=== PATIENT | female | born 2000 | race Caucasian/White ===

== ENCOUNTER 2021-11-09 12:58 | Inpatient (IN) | payer SELFPAY ==
[~2021-11-09] VITALS: Ht 172.7 cm; Wt 50.3 kg
[2021-11-09] MEDS ORDERED: METOCLOPRAMIDE HCL 10 MG/2 ML VIAL IV ONE (13:45)
[2021-11-09] MEDS ORDERED: IV NORMAL SALINE 1000 ML BAG IV ONE ×2 (13:45→16:00)
[2021-11-09] MEDS ORDERED: PANTOPRAZOLE SODIUM 40 MG VIAL IV ONE (13:45)
[2021-11-09] MEDS ORDERED: METOCLOPRAMIDE HCL 10 MG/2 ML VIAL ONE (14:09)
[2021-11-09] MEDS ORDERED: PANTOPRAZOLE SODIUM 40 MG VIAL ONE (14:09)
[2021-11-09 14:13] LABS: HEMATOCRIT 38.1 % (31.2-41.9); MEAN CORPUSCULAR HEMOGLOBIN 30.1 uug (24.7-32.8); MEAN CORPUSCULAR VOLUME 83.2 fL (75.5-95.3); PLATELET COUNT (AUTO) 330 K/uL (179-408)
[2021-11-09 15:32] LABS: BILIRUBIN,DIRECT 0.4 mg/dL (0.0-0.2); BILIRUBIN,TOTAL 1.6 mg/dL (0.2-1.0); CREATININE 0.7 mg/dL (0.6-1.3); TOTAL PROTEIN, SERUM 7.9 g/dL (6.4-8.2)
[2021-11-09 15:35] LABS: POTASSIUM 1.5 mmol/L (3.5-5.1)
[2021-11-09] MEDS ORDERED: ONDANSETRON 4 MG/2 ML VIAL IV ONE (15:45)
[2021-11-09] MEDS ORDERED: POTASSIUM BICARBONATE/CIT AC 25 MEQ TABLET.EFF PO ONE (15:45)
[2021-11-09] MEDS ORDERED: POTASSIUM CHLORIDE 20 MEQ POWDER PACKET PO ONE ×2 (15:45→18:15)
[2021-11-09] MEDS ORDERED: POTASSIUM CHLORIDE 20 MEQ POWDER PACKET ONE ×2 (15:48→18:36)
[2021-11-09] MEDS ORDERED: ONDANSETRON 4 MG/2 ML VIAL ONE (15:56)
[2021-11-09] MEDS ORDERED: POTASSIUM CHLORIDE 50 ML ONE ×2 (15:56→17:03)
[2021-11-09] MEDS ORDERED: POTASSIUM CHLORIDE 50 ML IV STA (15:57)
[2021-11-09] MEDS ORDERED: MAGNESIUM HYDROXIDE 30 ML LIQUID UDC PO PRN (17:00)
[2021-11-09] MEDS: POTASSIUM CHLORIDE 50 ML IV SCH ×2 (17:00→19:30)
[2021-11-09] MEDS ORDERED: ACETAMINOPHEN 325 MG TABLET PO PRN (17:00)
[2021-11-09 17:54] LABS: CREATININE 0.7 mg/dL (0.6-1.3)
[2021-11-09 17:56] LABS: POTASSIUM 1.7 mmol/L (3.5-5.1)
[2021-11-09] MEDS: POTASSIUM CHLORIDE 40 MEQ in IV NS 1000 ML 1,000 ML IV PRN (19:31)
[2021-11-10] MEDS: POTASSIUM CHLORIDE 40 MEQ in IV NS 1000 ML 1,000 ML IV PRN ×3 (04:00→23:04)
[2021-11-10 06:29] LABS: MEAN CORPUSCULAR HEMOGLOBIN 30.2 uug (24.7-32.8); MEAN CORPUSCULAR VOLUME 85.4 fL (75.5-95.3); PLATELET COUNT (AUTO) 229 K/uL (179-408)
[2021-11-10 06:33] LABS: CREATININE 0.6 mg/dL (0.6-1.3)
[2021-11-10 06:35] LABS: POTASSIUM 2.2 mmol/L (3.5-5.1)
[2021-11-10] MEDS ORDERED: METO-295 PO (08:27)
[2021-11-10] MEDS: ONDANSETRON 4 MG/2 ML VIAL IV PRN ×2 (08:42→13:05)
[2021-11-10] MEDS ORDERED: ONDANSETRON 4 MG/2 ML VIAL ONE ×2 (08:43→13:13)
[2021-11-10] MEDS ORDERED: POTASSIUM CHLORIDE 20 MEQ POWDER PACKET ONE (08:43)
[2021-11-10] MEDS ORDERED: POTASSIUM CHLORIDE 20 MEQ POWDER PACKET PO ONE (08:45)
[2021-11-10] MEDS ORDERED: ACETAMINOPHEN 325 MG TABLET ONE (13:13)
[2021-11-10 13:48] LABS: BAND % (MANUAL) 1 % (0-10); EOSINOPHILS % (MANUAL) 2 % (0-8); LYMPHOCYTES % (MANUAL) 42 % (20-40); MONOCYTES % (MANUAL) 16 % (2-10); NEUTROPHILS % (MANUAL) 39 % (42-75)
[2021-11-10] MEDS ORDERED: LORAZEPAM 2 MG/1 ML VIAL ONE ×2 (14:28→14:58)
[2021-11-10] MEDS ORDERED: LORAZEPAM 2 MG/1 ML VIAL IV ONE ×2 (15:00)
[2021-11-10] MEDS ORDERED: SODIUM PHOSPHATE MM 15 MMOL in IV NORMAL SALINE 250 ML IV ONE (18:00)
[2021-11-10 20:00] VITALS: BP 100/66
[2021-11-11] VITALS: BP 101/51
[2021-11-11 04:00] VITALS: BP 124/75
[2021-11-11 07:00] LABS: CREATININE 0.6 mg/dL (0.6-1.3); PHOSPHOROUS 2.9 mg/dL (2.5-4.9)
[2021-11-11 08:39] LABS: POTASSIUM 2.4 mmol/L (3.5-5.1)
[2021-11-11] MEDS ORDERED: POTASSIUM CHLORIDE 20 MEQ TAB.PRT.SR PO ONE ×2 (11:00→13:00)
[2021-11-11] MEDS: ONDANSETRON 4 MG/2 ML VIAL IV PRN (11:55)
[2021-11-11 12:00] VITALS: BP 119/63
[2021-11-11] MEDS: ENSURE ENLIVE (VAN) 240 ML LIQUID PO SCH ×2 (13:00→16:59)
[2021-11-11 16:00] VITALS: BP 111/69
[2021-11-11 20:00] VITALS: BP 111/54
[2021-11-11] MEDS ORDERED: OLANZAPINE 2.5 MG TABLET PO SCH (21:00)
[2021-11-11] MEDS: NICOTINE 21 MG/24HR PATCH TD SCH (21:31)
[2021-11-12] VITALS: BP 119/66
[2021-11-12] MEDS: POTASSIUM CHLORIDE 40 MEQ in IV NS 1000 ML 1,000 ML IV PRN ×2 (00:49→08:24)
[2021-11-12 04:00] VITALS: BP 117/79
[2021-11-12 06:54] LABS: CARBON DIOXIDE 28 mmol/L (21-32); CHLORIDE 108 mmol/L (98-107); CREATININE 0.5 mg/dL (0.6-1.3); GLUCOSE 73 mg/dL (74-106); MAGNESIUM 1.9 mg/dL (1.8-2.4); POTASSIUM 3.5 mmol/L (3.5-5.1); UREA NITROGEN, BLOOD 5 mg/dL (7-18)
[2021-11-12] MEDS: NICOTINE 21 MG/24HR PATCH TD SCH (08:06)
[2021-11-12] MEDS ORDERED: OLAN2.5T27 PO (11:01)
== END 2021-11-12 12:25 | disposition home or self-care (01) | DRG 641 ==
LOC: ER 13:02 → TRANSITION 17:39 → TELE3 11-10 21:47 → MEDSURG3 11-12 10:47
PROVIDERS: ADMIT Nurse Practitioner Acute Care; ATTEND Nurse Practitioner Acute Care
DX: E87.6 Hypokalemia (principal); Z68.1 Body mass index [BMI] 19.9 or less, adult; F50.2 Bulimia nervosa; R00.1 Bradycardia, unspecified; E87.1 Hypo-osmolality and hyponatremia; R63.6 Underweight; E86.0 Dehydration; R10.10 Upper abdominal pain, unspecified; Z20.822 Contact with and (suspected) exposure to COVID-19; E86.1 Hypovolemia; F22 Delusional disorders; Z62.810 Personal history of physical and sexual abuse in childhood; Z87.19 Personal history of other diseases of the digestive system
CPT/HCPCS: 36415; 70030-TC; 70450; 71045; 83690; 83735; 84100; 84132; 85025; 93005; C9113; G0378; J2060; J2405; J2765; J3480; J3490; J7030; J7050